=== PATIENT | male | born 1980 | race Caucasian/White ===

== ENCOUNTER 2021-06-29 14:27 | Emergency (ER) | payer OTHER ==
[~2021-06-29] VITALS: Ht 188 cm; Wt 100.9 kg
--- NOTE | 2021-06-29 14:47 | PHYS DOC ---
General Adult EDM: Chief Complaint: ABDOMINAL PAIN HPI: HPI: Patient is a 41-year-old male who presents to the emergency department complaining of a slow onset of left lower quadrant pain for the past 3 days, reports a 4 out of 10 at onset, has increased to a 6 or 7 out of 10, has currently reduced to a 3 out of 10 at this time after having a dark maroon stool bowel movement x1 today prompting him to come to the emergency department for evaluation of bloody stools, patient denies seeing bright red blood in his stool, patient denies dark tarry stools, denies a history of constipation, denies diarrhea, reports his stool is of normal consistency. Patient denies a history of blood in his stool or blood in his vomitus, has not had a upper or lower GI evaluation, reports a family history of breast cancer paternal grandmother, prostate and oral cancer paternal grandfather, no family history of GI cancers. Denies other family history. Reports taking Singulair and cetirizine for seasonal allergies, denies other health history. Patient does report some nausea without vomiting, denies chest pains or shortness of breath, denies dizziness, syncopal or near syncopal episodes. Patient denies other physical complaints or physical concerns. Review of Systems: Review of Systems: 14 body systems of review of systems have been reviewed. See HPI for pertinent positives and negative responses, otherwise all other systems are negative, nonpertinent or noncontributory. Constitutional: Negative except as outlined in HPI above. Skin: Negative except as outlined in HPI above. Eyes: Negative except as outlined in HPI above. HENT: Negative except as outlined in HPI above. Respiratory: Negative except as outlined in HPI above. Cardiovascular: Negative except as outlined in HPI above. GI: Negative except as outlined in HPI above. : Negative except as outlined in HPI above. Musculoskeletal: Negative except as outlined in HPI above. Integument: Negative except as outlined in HPI above. Neurologic: Negative except as outlined in HPI above. Endocrine: Negative except as outlined in HPI above. Lymphatic: Negative except as outlined in HPI above. Psychiatric: Negative except as outlined in HPI above. Heart Score: C/O Chest Pain: No Risk Factors: Risk Factors: DM, Current or recent (<one month) smoker, HTN, HLP, family history of CAD, obesity. Risk Scores: Score 0 - 3: 2.5% MACE over next 6 weeks - Discharge Home Score 4 - 6: 20.3% MACE over next 6 weeks - Admit for Clinical Observation Score 7 - 10: 72.7% MACE over next 6 weeks - Early Invasive Strategies Physical Exam: PE: Constitutional: Well developed, well nourished, no acute distress, non-toxic appearance. 41-year-old male in no apparent distress. HENT: Normocephalic, atraumatic. Oropharynx moist, pink, no deep tissue infectious process appreciated. Eyes: Conjunctiva normal, no discharge. Neck: Normal range of motion, no stridor. Cardiovascular: No cyanosis appreciated, distal cap refill less than 2 seconds. Heart sounds S1-S2 to auscultation, regular rate and rhythm. Lungs & Thorax: Patient is in no respiratory distress, no audible adventitious lung sounds appreciated. Clear to auscultate all lung feliciano. Abdomen: Normal bowel sounds all 4 quadrants, pain to palpation left lower quadrant without rebound tenderness, no McBurney's point tenderness, no upper abdominal pain, negative Escamilla sign, negative psoas sign. No skin discoloration of the abdomen, abdomen is soft, round, no pulsatile masses, no other abdominal abnormalities appreciated. There are no surgical scars. Skin: Warm, dry, no erythema, no rash. Back: No tenderness, no deformities. Extremities: No tenderness, no cyanosis, no clubbing, ROM intact, no edema. Neurologic: Alert and oriented X 3, normal motor function, normal sensory function, no focal deficits noted. Psychologic: Affect normal, judgement normal, mood normal. : Rectal exam performed with ED nurse at bedside for nut tapper, no external hemorrhoids appreciated, digital exam did not reveal appreciable internal hemorrhoids, stool was soft, obtain occult blood sample to send to lab. Patient tolerated well, denied rectal pain. Current Patient Data: Labs: Laboratory Tests Test 06/29/21 14:55 06/29/21 15:58 06/29/21 16:05 06/29/21 16:34 Stool Occult Blood Positive Urine Collection Type Unknown Urine Color Yellow Urine Clarity Clear Urine pH 6.5 Urine Specific [place] 1.025 Urine Protein Negative mg/dL Urine Glucose (UA) Negative mg/dL Urine Ketones (Stick) Negative mg/dL Urine Blood Negative Urine Nitrite Negative Urine Bilirubin Negative Urine Urobilinogen Dipstick 1.0 mg/dL Urine Leukocyte Esterase Negative Urine RBC 0 /HPF Urine WBC 0 /HPF Urine Bacteria 0 /HPF Urine Mucus Slight /LPF White Blood Count 11.4 x10^3/uL Red Blood Count 4.90 x10^6/uL Hemoglobin 14.3 g/dL Hematocrit 42.5 % Mean Corpuscular Volume 87 fL Mean Corpuscular Hemoglobin 29 pg Mean Corpuscular Hemoglobin Concent 34 g/dL Red Cell Distribution Width 13.2 % Platelet Count 315 x10^3/uL Neutrophils (%) (Auto) 63 % Lymphocytes (%) (Auto) 25 % Monocytes (%) (Auto) 9 % Eosinophils (%) (Auto) 3 % Basophils (%) (Auto) 1 % Neutrophils # (Auto) 7.2 x10^3/uL Lymphocytes # (Auto) 2.8 x10^3/uL Monocytes # (Auto) 1.0 x10^3/uL Eosinophils # (Auto) 0.3 x10^3/uL Basophils # (Auto) 0.1 x10^3/uL Prothrombin Time 14.5 SEC Prothromb Time International Ratio 1.1 Activated Partial Thromboplast Time 32 SEC Sodium Level 142 mmol/L Potassium Level 4.0 mmol/L Chloride Level 105 mmol/L Carbon Dioxide Level 27 mmol/L Anion Gap 10 Blood Urea Nitrogen 19 mg/dL Creatinine 0.8 mg/dL Estimated GFR (Cockcroft-Gault) 105.5 BUN/Creatinine Ratio 24 Glucose Level 99 mg/dL Calcium Level 8.3 mg/dL Total Bilirubin 0.4 mg/dL Aspartate Amino Transf (AST/SGOT) 10 U/L Alanine Aminotransferase (ALT/SGPT) 23 U/L Alkaline Phosphatase 69 U/L Total Protein 7.4 g/dL Albumin 3.9 g/dL Albumin/Globulin Ratio 1.1 Lipase 82 U/L Test 06/29/21 16:57 Influenza Type A Antigen Negative Influenza Type B Antigen Negative SARS-CoV-2 Antigen (Rapid) Negative Current Medications Medications (Trade) Dose Ordered Sig/Zoey Route PRN Reason Start Time Stop Time Status Last Admin Dose Admin Morphine Sulfate (Morphine Sulfate) 2 mg 1X ONCE IVP 06/29/21 15:15 06/29/21 15:16 DC 06/29/21 17:28 Sodium Chloride 1,000 ml @ 1,000 mls/hr 1X ONCE IV 06/29/21 15:15 06/29/21 16:14 DC 06/29/21 16:47 Iohexol (Omnipaque 300 Mg/ml) 75 ml 1X ONCE IV 06/29/21 16:30 06/29/21 16:31 DC 06/29/21 17:15 Info (CONTRAST GIVEN -- Rx MONITORING) 1 each PRN DAILY PRN MC SEE COMMENTS 06/29/21 16:30 07/01/21 16:29 Morphine Sulfate (Morphine Sulfate) 4 mg 1X ONCE IVP 06/29/21 19:00 06/29/21 19:01 DC 06/29/21 19:12 Ciprofloxacin (Cipro) 500 mg 1X ONCE PO 06/29/21 19:30 06/29/21 19:31 UNV Metronidazole (Flagyl) 500 mg 1X ONCE PO 06/29/21 19:30 06/29/21 19:31 UNV Laboratory Tests Test 06/29/21 14:55 06/29/21 15:58 06/29/21 16:05 06/29/21 16:34 Stool Occult Blood Positive Urine Collection Type Unknown Urine Color Yellow Urine Clarity Clear Urine pH 6.5 Urine Specific [place] 1.025 Urine Protein Negative mg/dL Urine Glucose (UA) Negative mg/dL Urine Ketones (Stick) Negative mg/dL Urine Blood Negative Urine Nitrite Negative Urine Bilirubin Negative Urine Urobilinogen Dipstick 1.0 mg/dL Urine Leukocyte Esterase Negative Urine RBC 0 /HPF Urine WBC 0 /HPF Urine Bacteria 0 /HPF Urine Mucus Slight /LPF White Blood Count 11.4 x10^3/uL Red Blood Count 4.90 x10^6/uL Hemoglobin 14.3 g/dL Hematocrit 42.5 % Mean Corpuscular Volume 87 fL Mean Corpuscular Hemoglobin 29 pg Mean Corpuscular Hemoglobin Concent 34 g/dL Red Cell Distribution Width 13.2 % Platelet Count 315 x10^3/uL Neutrophils (%) (Auto) 63 % Lymphocytes (%) (Auto) 25 % Monocytes (%) (Auto) 9 % Eosinophils (%) (Auto) 3 % Basophils (%) (Auto) 1 % Neutrophils # (Auto) 7.2 x10^3/uL Lymphocytes # (Auto) 2.8 x10^3/uL Monocytes # (Auto) 1.0 x10^3/uL Eosinophils # (Auto) 0.3 x10^3/uL Basophils # (Auto) 0.1 x10^3/uL Prothrombin Time 14.5 SEC Prothromb Time International Ratio 1.1 Activated Partial Thromboplast Time 32 SEC Sodium Level 142 mmol/L Potassium Level 4.0 mmol/L Chloride Level 105 mmol/L Carbon Dioxide Level 27 mmol/L Anion Gap 10 Blood Urea Nitrogen 19 mg/dL Creatinine 0.8 mg/dL Estimated GFR (Cockcroft-Gault) 105.5 BUN/Creatinine Ratio 24 Glucose Level 99 mg/dL Calcium Level 8.3 mg/dL Total Bilirubin 0.4 mg/dL Aspartate Amino Transf (AST/SGOT) 10 U/L Alanine Aminotransferase (ALT/SGPT) 23 U/L Alkaline Phosphatase 69 U/L Total Protein 7.4 g/dL Albumin 3.9 g/dL Albumin/Globulin Ratio 1.1 Lipase 82 U/L Test 06/29/21 16:57 Influenza Type A Antigen Negative Influenza Type B Antigen Negative SARS-CoV-2 Antigen (Rapid) Negative Current Medications Medications (Trade) Dose Ordered Sig/Zoey Route PRN Reason Start Time Stop Time Status Last Admin Dose Admin Morphine Sulfate (Morphine Sulfate) 2 mg 1X ONCE IVP 06/29/21 15:15 06/29/21 15:16 DC 06/29/21 17:28 Sodium Chloride 1,000 ml @ 1,000 mls/hr 1X ONCE IV 06/29/21 15:15 06/29/21 16:14 DC 06/29/21 16:47 Iohexol (Omnipaque 300 Mg/ml) 75 ml 1X ONCE IV 06/29/21 16:30 06/29/21 16:31 DC 06/29/21 17:15 Info (CONTRAST GIVEN -- Rx MONITORING) 1 each PRN DAILY PRN MC SEE COMMENTS 06/29/21 16:30 07/01/21 16:29 EKG: EKG: [] Radiology/Procedures: Radiology/Procedures: STATUS: REG ER ORD. PHYSICIAN: ASTER GUAJARDO APRN REASON: Blood in stool, left lower quadrant pain PROCEDURE: CT ABD PELV W/ IV CONTRST ONLY Exam: CT abdomen/pelvis with intravenous contrast Indication: Left lower quadrant pain, blood in stools Comparison: None Technique: Helical CT imaging performed of the abdomen and pelvis after the intravenous administration of 75 mg Omnipaque 300 contrast. Sagittal and coronal reformats were obtained. One or more of the following individualized dose reduction techniques were uti lized for this examination: 1. Automated exposure control 2. Adjustment of the mA and/or kV according to patient size 3. Use of iterative reconstruction technique. Findings: Lower chest: Mild atelectasis in the lung bases. Heart is normal in size. Liver: Normal. Gallbladder/Biliary Tree: Normal. Pancreas: Normal. Spleen: Normal Adrenal Glands: Normal. Kidneys/Ureters/Bladder: Normal. Reproductive Organs: Normal. Stomach, small bowel, and colon: There is mild wall thickening of the descending and sigmoid colon with mild pericolonic fat stranding. Trace free fluid in the left lower quadrant. No fluid collection, pneumoperitoneum, or pneumatosis. The rest of the colon, appendix, small bowel, and stomach are normal in appearance. Vasculature: Abdominal aorta is normal in caliber. Minimal calcifications in the right common iliac artery. Lymph Nodes: No lymphadenopathy. Peritoneum and retroperitoneum: Trace fluid in the left lower quadrant. No free air. Bones: No acute osseous abnormalities. There is mild degenerative joint disease of the right hip with small subchondral cysts and calcifications along the right acetabulum. Miscellaneous: None IMPRESSION: Colitis of the descending and sigmoid colon. Electronically signed by: Carmita Silva MD (06/29/2021 5:35 PM) [id number] Course & Med Decision Making: Course & Med Decision Making Pertinent Labs and Imaging studies reviewed. (See chart for details) 41-year-old male, vital signs reviewed, presents to the emergency department concerning left lower quadrant pain with bloody stools. Physical examination concerning for acute abdominal process, will send occult blood stool, CBC, CMP, lipase, PT PTT, type and screen, 1 L normal saline, 2 mg morphine, CT abdomen pelvis with IV contrast. Will reevaluate after period of time. 1740, patient returned to room from CT, patient reports pain relief with IV pain medication given, has no further nausea. CT result pending at this time. Patient's CBC is unremarkable, normal platelet count, CMP unremarkable, patient had slightly elevated PT of 14.5 otherwise INR and PTT normal. Did discuss with patient [id number] medication use, patient states that he has been taking Advil PM every night for over a month for recurring evening headaches. Patient denies headache at this time, states he has an appointment with his eye doctor this next week to evaluate for headaches. CT concerning for colitis, upon reevaluation of the patient, patient reports pain is returning and is now 5 out of 10, will give IV pain medications. Discussed with patient will start on Flagyl and Cipro regimen, discharged home, refrain from NSAID use until reevaluation by director of global sales to discuss returning headaches, discussed with patient antibiotic regimen with side effects, using Tylenol for returning pain, strict follow-up with GI specialty, return to ER precautions and concerns were reviewed, patient gave verbal understanding of and is amenable to ED discharge planning. Upon reevaluation of the patient, patient reports his pain is under a 1 out of 10 and feels comfortable going home, patient's at bedside will drive patient to residents. Patient remains nontoxic in appearance, vital signs remained stable. Dragon Disclaimer: Dragon Disclaimer: This electronic medical record was generated, in whole or in part, using a voice recognition dictation system. Departure Departure Impression: Primary Impression: Colitis Additional Impressions: Blood in stool Abdominal pain Qualified Codes: R10.32 - Left lower quadrant pain Disposition: HOME / SELF CARE / HOMELESS Condition: GOOD Referrals: RICKY LEAL MD, SCOTT S MD Patient Instructions: Abdominal Pain, Colitis Additional Instructions: You were seen today in the emergency department for abdominal pain and seeing blood in your stool. Your lab work did not show any concerning findings, you are not anemic and do not show any infectious process. The CT scan of your abdomen and pelvis did show colitis which is an inflammation of your large int estine. As we discussed please refrain from further NSAID use, you may use Tylenol for returning discomfort. I have prescribed antibiotics, please take as directed until complete. Please follow-up with Dr. Leal, call this Friday to let him know of your emergency department visit, I have recommended a GI specialist Dr. Fernandez, please call Friday for an appointment for evaluation. Continue to stay well-hydrated, please return to the emergency department for worsening symptoms or other concerns. Thank you for visiting our Emergency Department. It was a pleasure taking care of you today in the emergency department and we appreciate you trusting us with your care. If any additional problems come up don't hesitate to return to visit us. Please follow up with your primary care provider so they can plan additional care if needed and know about the problem that you had. If symptoms worsen come back to the Emergency Department. Any concerning symptoms that start such as chest pain, shortness of air, weakness or numbness on one side of the body, running high fevers or any other concerning symptoms return to the ER. EMERGENCY DEPARTMENT GENERAL DISCHARGE INSTRUCTIONS Thank you for coming to [facility] Emergency Department (ED) today and trusting us with you care. We trust that you had a positive experience in our Emergency Department. If you wish to speak to the department management, you may call the Director at [phone]. YOUR FOLLOW UP INSTRUCTIONS ARE FOLLOWS: 1. Do you have a private Doctor? If you do not have a private doctor, please ask for a resource list of physicians or clinics that may be able to assist you with follow up care. 2. The Emergency Physicain has interpreted your x-rays. The X-Ray specialist will also review them. If there is a change in the findings, you will be notified in 48 hours when at all possible. 3. A lab test or culture has been done, your results will be reviewed and you will be notified if you need a change in treatment. ADDITIONAL INSTRUCTIONS AND INFORMATION: 1. Your care today has been supervised by a physician who is specially trained in emergency care. Many problems require more than one evaluation for a complete diagnosis and treatment. We recommend that you schedule your follow up appointment as recommended to ensure complete treatment of you illness or injury. If you are unable to obtain follow up care and continue to have a problem, or if your condition worsens, we recommend that you return to the ED. 2. We are not able to safely determine your condition over the phone nor are we able to give sound medical advice over the phone. For these safety reasons, if you call for medical advice we will ask you to come to the ED for further evaluation. 3. If you have any questions regarding these discharge instructions please call the ED at [phone]. SAFETY INFORMATION: In the interest of safety, wellness, and injury prevention; we encourage you to wear your sealbelt, if you smoke; quite smoking, and we encourage family to use a protective helmet for bicycling and other sporting events that present an increased risk for head injury. IF YOUR SYMPTOMS WORSEN OR NEW SYMPTOMS DEVELOP, OR YOU HAVE CONCERNS ABOUT YOUR CONDITION; OR IF YOUR CONDITION WORSENS WHILE YOU ARE WAITING FOR YOUR FOLLOW UP APPOINTMENT; EITHER CONTACT YOUR PRIMARY CARE DOCTOR, THE PHYSICIAN WHOSE NAME AND NUMBER YOU WERE GIVEN, OR RETURN TO THE ED IMMEDIATELY. Scripts Ciprofloxacin Hcl (CIPROFLOXACIN HCL) 500 Mg Tablet 1 TAB PO BID for colitis, #20 TAB 0 Refills Prov: ASTER GUAJARDO APRN 06/29/21 Metronidazole (METRONIDAZOLE) 500 Mg Tablet 1 TAB PO TID for 10 Days, #30 TAB 0 Refills Prov: ASTER GUAJARDO APRN 06/29/21 ASTER GUAJARDO APRN Jun 29, 2021 14:47
[2021-06-29] MEDS ORDERED: MORPHINE SULFATE 2 MG/ML INJ. IVP ONE (15:15)
[2021-06-29] MEDS ORDERED: IV NORMAL SALINE 1000ML BAG 1,000 ML IV ONE (15:15)
[2021-06-29 15:23] LABS: FECAL OB PT POSITIVE (NEG)
[2021-06-29 16:18] LABS: BASO # 0.1 x10^3/uL (0.0-0.2); BASO % 1 % (0-3); EOS # 0.3 x10^3/uL (0.0-0.7); EOS % 3 % (0-3); HEMATOCRIT 42.5 % (39.0-53.0); HEMOGLOBIN 14.3 g/dL (13.0-17.5); LYMPH # 2.8 x10^3/uL (1.0-4.8); LYMPH % 25 % (24-48); MEAN CORPUSCULAR HEMOGLOBIN 29 pg (25-35); MEAN CORPUSCULAR HGB CONC 34 g/dL (31-37); MEAN CORPUSCULAR VOLUME 87 fL (79-100); MONO % 9 % (0-9); NEUT # 7.2 x10^3/uL (1.8-7.7); NEUT % 63 % (31-73); PLATELET COUNT 315 x10^3/uL (140-400); RED CELL DISTRIBUTION WIDTH 13.2 % (11.5-14.5); WHITE BLOOD COUNT 11.4 x10^3/uL (4.0-11.0)
[2021-06-29 16:26] LABS: BACTERIA,URINE 0 /HPF (0-FEW); BILIRUBIN,URINE NEGATIVE (NEG); CLARITY,URINE CLEAR; COLOR,URINE YELLOW; NITRITE,URINE NEGATIVE (NEG); PH,URINE 6.5 (<5.0-8.0); PROTEIN,URINE NEGATIVE (NEG-TRACE); RBC,URINE 0 /HPF (0-2); WBC,URINE 0 /HPF (0-4)
[2021-06-29] MEDS ORDERED: CONTRAST GIVEN. MC PRN (16:30)
[2021-06-29] MEDS ORDERED: IOHEXOL 300 MG/ML 100ML VIAL. IV ONE (16:30)
[2021-06-29 16:31] LABS: PROTHROMBIN TIME PATIENT 14.5 SEC (11.7-14.0)
[2021-06-29 16:56] LABS: CALCIUM 8.3 mg/dL (8.5-10.1); CREATININE 0.8 mg/dL (0.7-1.3); GFR 105.5
[2021-06-29 17:02] LABS: ALBUMIN 3.9 g/dL (3.4-5.0); ALBUMIN/GLOBULIN RATIO 1.1 (1.0-1.7); TOTAL BILIRUBIN 0.4 mg/dL (0.2-1.0); TOTAL PROTEIN 7.4 g/dL (6.4-8.2)
[2021-06-29 17:22] LABS: INFLUENZA A PATIENT NEGATIVE (NEGATIVE); INFLUENZA B PATIENT NEGATIVE (NEGATIVE)
--- NOTE | 2021-06-29 17:37 | RAD ---
Exam: CT abdomen/pelvis with intravenous contrast Indication: Left lower quadrant pain, blood in stools Comparison: None Technique: Helical CT imaging performed of the abdomen and pelvis after the intravenous administratio n of 75 mg Omnipaque 300 contrast. Sagittal and coronal reformats were obtained. One or more of the following individualized dose reduction techniques were utilized for this examinat ion: 1. Automated exposure control 2. Adjustment of the mA and/or kV according to patient size 3. Use of iterative reconstruction technique. Findings: Lower chest: Mild atelectasis in the lung bases. Heart is normal in size. Liver: Normal. Gallbladder/Biliary Tree: Normal. Pancreas: Normal. Spleen: Normal Adrenal Glands: Normal. Kidneys/Ureters/Bladder: Normal. Reproductive Organs: Normal. Stomach, small bowel, and colon: There is mild wall thickening of the descending and sigmoid colon wi th mild pericolonic fat stranding. Trace free fluid in the left lower quadrant. No fluid collection, pneumoperitoneum, or pneumatosis. The rest of the colon, appendix, small bowel, and stomach are vanessa l in appearance. Vasculature: Abdominal aorta is normal in caliber. Minimal calcifications in the right common iliac a rtery. Lymph Nodes: No lymphadenopathy. Peritoneum and retroperitoneum: Trace fluid in the left lower quadrant. No free air. Bones: No acute osseous abnormalities. There is mild degenerative joint disease of the right hip with small subchondral cysts and calcifications along the right acetabulum. Miscellaneous: None IMPRESSION: Colitis of the descending and sigmoid colon. Electronically signed by: Carmita Silva MD (06/29/2021 5:35 PM) [id number]
[2021-06-29] MEDS ORDERED: MORPHINE SULFATE 4 MG/ML INJ. IVP ONE (19:00)
[2021-06-29 19:25] VITALS: BP 132/79
[2021-06-29] MEDS ORDERED: METR-34 PO (19:30)
[2021-06-29] MEDS ORDERED: metroNIDAZOLE 500 MG TABLET PO ONE (19:30)
[2021-06-29] MEDS ORDERED: CIPR500T2 PO (19:30)
[2021-06-29] MEDS ORDERED: CIPROFLOXACIN HCL 250 MG TABLET. PO ONE (19:30)
--- NOTE | 2021-07-02 10:14 | NUR ---
IP: Informed pt of negative covid test. Pt verbalized understanding.
== END 2021-06-29 19:45 | disposition home or self-care (01) ==
LOC: ER 14:27
DX: K52.9 Noninfective gastroenteritis and colitis, unspecified (principal); K92.1 Melena; Z20.822 Contact with and (suspected) exposure to COVID-19
CPT/HCPCS: 36415; 74177; 80053; 81001; 82274; 83690; 85025; 85610; 85730; 86850; 86900; 86901; 87428; 96361; 96374; 96376; 99285; C9803; J2270; J7030; Q9967; U0003; 96375; 99284-25